=== PATIENT | male | born 2000 | race Two or more races ===

== ENCOUNTER 2022-05-22 07:52 | Outpatient (CLI) | payer OTHER | END 2022-05-22 07:58 | disposition home or self-care (01) | LOC: SONOGRAMA 07:52 | PROVIDERS: ATTEND Pathology Anatomic Pathology & Clinical Pathology | DX: E04.2 Nontoxic multinodular goiter (principal) ==

== ENCOUNTER 2024-11-24 09:30 | Outpatient (CLI) | payer OTHER | END 2024-11-24 09:31 | disposition home or self-care (01) | LOC: SONOGRAMA 09:30 | PROVIDERS: ATTEND Pathology Anatomic Pathology & Clinical Pathology | DX: D34 Benign neoplasm of thyroid gland (principal); E07.89 Other specified disorders of thyroid; E04.1 Nontoxic single thyroid nodule ==